=== PATIENT | male | born 1985 | race Caucasian/White ===

== ENCOUNTER 2025-06-23 22:10 | Emergency (ER) | payer BC, OTHER ==
[2025-06-23] MEDS: Diphtheria,Pertussis(Acell),Tetanus Vaccine 0.5 ML Syringe IM ONE (23:14)
[2025-06-24 01:07] VITALS: BP 138/90; PULSE 76
== END 2025-06-24 01:01 | disposition home or self-care (01) ==
LOC: JD.ED 22:10
DX: S01.01XA Laceration without foreign body of scalp, initial encounter (principal); S09.90XA Unspecified injury of head, initial encounter; Z23 Encounter for immunization; Z91.030 Bee allergy status; W22.8XXA Striking against or struck by other objects, initial encounter
CPT/HCPCS: 12002; 12013; 70450; 70450-26; 72125; 72125-26; 90471; 90715; 99283; 99283-25